=== PATIENT | male | born 1960 | race Caucasian/White ===

== ENCOUNTER 2017-08-09 11:24 | Emergency (ER) | payer SELFPAY ==
[~2017-08-09] VITALS: Ht 168.9 cm; Wt 79.5 kg
[2017-08-09 11:27] VITALS: BP 174/90; PULSE 87; RESP 18; TEMP 97.4; O2SAT 100
[2017-08-09] MEDS ORDERED: KETOROLAC TROMETHAMINE 60 MG/2 ML (IM) VIAL IM ONE (11:45)
[2017-08-09] MEDS ORDERED: DEXAMETHASONE SOD PHOS 20 MG/5 ML VIAL IM ONE (11:45)
--- NOTE | 2017-08-09 11:48 | PD ---
HPI Chief Complaint: Pain: Acute or Chronic Time Seen by Provider: 11:32 Travel History International Travel<30 days: No Contact w/Intl Traveler<30days: No Traveled to known affect area: No History of Present Illness HPI 56-year-old male presents emergency department with 2 complaints. One is left wrist pain and swelling which he knows is secondary to gout. He gets this frequently. Patient also is complaining of ongoing left knee pain, swelling, locking and giving out, for over the last year. Patient states he was seen at [facility] year ago and had x-rays without follow-up. Patient currently is just signed up for Medicaid. He is requesting orthopedic referral for his knee, as he is having difficulty ambulating as his pain and swelling is worsening. Pain in the left wrist is 8 out of 10. Pain in the left knee is 9 out of 10. He has to use a cane to ambulate. He denies any specific injury. He has no known drug allergies. PFSH Social History Alcohol Use: Yes Tobacco Use: Yes Allergies-Medications (Allergen,Severity, Reaction): Coded Allergies: No Known Allergies (Unverified , 08/09/17) Reported Meds & Prescriptions Reported Meds & Active Scripts Active Tramadol (Tramadol HCl) 50 Mg Tab 50 Mg PO Q6H PRN Prednisone 20 Mg Tab 20 Mg PO BID 5 Days Review of Systems Except as stated in HPI: all other systems reviewed are Neg General / Constitutional: No: Fever Eyes: No: Visual changes HENT: No: Headaches Cardiovascular: No: Chest Pain or Discomfort Respiratory: No: Shortness of Breath Gastrointestinal: No: Abdominal Pain Genitourinary: No: Dysuria Musculoskeletal: Positive: Arthralgias, Limited ROM, Pain Skin: No Rash Neurologic: No: Weakness Psychiatric: No: Depression Endocrine: No: Polydipsia Hematologic/Lymphatic: No: Easy Bruising Physical Exam Narrative GENERAL: Patient appears in mild to moderate distress per SKIN: Warm and dry. Normal color. Normal turgor. No rash. HEAD: Atraumatic. Normocephalic. EYES: Pupils equal and round. No scleral icterus. No injection or drainage. ENT: No nasal bleeding or discharge. Mucous membranes pink and moist. Pharynx is clear. Airways patent NECK: Trachea midline. No bony tenderness or step-off. Range of motion is full CARDIOVASCULAR: Regular rate and rhythm. RESPIRATORY: No accessory muscle use. Clear to auscultation. Breath sounds equal bilaterally. GASTROINTESTINAL: Abdomen soft, non-tender, nondistended. Hepatic and splenic margins not palpable. MUSCULOSKELETAL: Extremities without clubbing, cyanosis, or edema. No obvious deformities. Left wrist is somewhat swollen increased warmth noted consistent with gout. Range of motion is intact. Normal neurovascular exam. Left knee has pain with palpation of both joint lines with mild effusion noted. Range of motion is limited secondary to pain. No obvious significant laxity noted. No crepitus. Exam is limited secondary to patient's discomfort. NEUROLOGICAL: Awake and alert. No obvious cranial nerve deficits. Motor grossly within normal limits. Five out of 5 muscle strength in the arms and legs. Normal speech. PSYCHIATRIC: Appropriate mood and affect; insight and judgment normal. Data Data Last Documented VS Vital Signs Date Time Temp Pulse Resp B/P (MAP) Pulse Ox O2 Delivery O2 Flow Rate FiO2 08/09/17 11:27 97.4 87 18 174/90 (118) 100 Orders Orders Knee, Complete (4vws) (08/09/17 11:40) Dexamethasone Inj (Decadron Inj) (08/09/17 11:45) Ketorolac Inj (Toradol Inj) (08/09/17 11:45) Splint Or Brace Apply/Monitor (08/09/17 11:40) Mandatory Outpatient Referral (08/09/17 11:49) [facility] Medical Decision Making Medical Screen Exam Complete: Yes Emergency Medical Condition: Yes Differential Diagnosis Arthralgia. Gout. Right knee pain. Right knee effusion. Narrative Course Patient is medically stable at time of exam. Patient is given 10 mg Decadron IM as well as 60 mg Toradol IM. X-ray of the left knee is ordered. Patient is placed in left knee immobilizer. X-ray shows: 4 views of the right knee demonstrate no fracture or dislocation. The bones are mildly undermineralized. There is a possible small suprapatellar joint effusion. No soft tissue abnormality or radiopaque foreign body is identified. Patient continued on prednisone 20 mg twice daily for 5 days. Patient also given tramadol 50 mg 1 every 6 hours as needed pain #20. Mandatory referral is made to Dr. Olson, the orthopedist software implementation project manager regarding his left knee. Patient is referred to [facility] for his chronic gout and primary care needs. Diagnosis Primary Impression: Acute gouty arthritis Additional Impression: Chronic pain of left knee Referrals: Francesco Bosch MD call for appointment [facility] call for appointment Patient Instructions: General Instructions, Gout (ED), Knee Immobilizer (DC), Low Purine Diet (ED) Additional Instructions: Patient is given 10 mg Decadron IM as well as 60 mg Toradol IM. X-ray of the left knee is ordered. Patient is placed in left knee immobilizer. X-ray shows: 4 views of the right knee demonstrate no fracture or dislocation. The bones are mildly undermineralized. There is a possible small suprapatellar joint effusion. No soft tissue abnormality or radiopaque foreign body is identified. Patient continued on prednisone 20 mg twice daily for 5 days. Patient also given tramadol 50 mg 1 every 6 hours as needed pain #20. Mandatory referral is made to Dr. Olson, the orthopedist software implementation project manager regarding his left knee. Patient is referred to [facility] for his chronic gout and primary care needs. Med/Other Pt SpecificInfo: Prescription(s) given Scripts Tramadol (Tramadol) 50 Mg Tab 50 MG PO Q6H Y for PAIN, #20 TAB 0 Refills Prov: Vasyl Bettencourt MD 08/09/17 Prednisone (Prednisone) 20 Mg Tab 20 MG PO BID for 5 Days, #10 TAB 0 Refills Prov: Vasyl Bettencourt MD 08/09/17 Disposition: 01 DISCHARGE HOME Condition: Stable Fer Chanel Aug 09, 2017 11:48
[2017-08-09] MEDS ORDERED: TRAM50TA PO (11:49)
[2017-08-09] MEDS ORDERED: PRED20 PO (11:49)
--- NOTE | 2017-08-09 12:26 | RADRPT ---
EXAM DATE/TIME: 08/09/2017 12:09 [place] COMPARISON: No previous studies available for comparison. INDICATIONS : Right knee pain, no injury. MEDICAL HISTORY : None. SURGICAL HISTORY : None. ENCOUNTER: Initial ACUITY: 1 day PAIN SCORE: 7/10 LOCATION: Right lateral and medial knee FINDINGS: 4 views of the right knee demonstrate no fracture or dislocation. The bones are mildly undermineraliz ed. There is a possible small suprapatellar joint effusion. No soft tissue abnormality or radiopaque foreign body is identified. CONCLUSION: 1. No acute right knee abnormality is identified. 2. Possible small joint effusion. Jeffery Vazquez MD on August 09, 2017 at 12:22 Board Certified Radiologist. This report was verified electronically.
== END 2017-08-09 12:56 | disposition home or self-care (01) ==
LOC: NEPK 11:24
DX: M10.9 Gout, unspecified (principal); G89.29 Other chronic pain; M25.562 Pain in left knee; M25.532 Pain in left wrist; Z72.0 Tobacco use
CPT/HCPCS: 73564; 96372; 99283; J1100; J1885; L1830